=== PATIENT | female | born 1945 | race African-American/Black ===

== ENCOUNTER 2021-08-16 07:47 | Day surgery (SDC) | payer OTHER ==
--- NOTE | 2021-08-14 14:18 | RAD REPORT ---
EXAM DESCRIPTION: RAD - Chest Pa And Lat (2 Views) - 08/14/2021 2:10 pm CLINICAL HISTORY: Pre op pending mass removal Chest pain. COMPARISON: No comparisons FINDINGS: The lungs are clear. The heart is normal in size. No displaced fractures. IMPRESSION: No acute or concerning finding suspected.
[2021-08-14 14:57] LABS: Absolute Lymphocytes (CBC) 2.2 K/uL (0.7-4.9); Hematocrit 37.4 % (36.0-45.0); Lymphocytes % 31.7 % (15.3-44.8); MPV 7.6 fL (7.6-11.3); RBC Red Blood Cell Count 4.53 M/uL (3.86-4.86)
[2021-08-14 15:11] LABS: BUN Blood Urea Nitrogen 11 mg/dL (7-18); Bicarbonate 32 mmol/L (21-32); Glucose Level 82 mg/dL (74-106); Potassium 3.6 mmol/L (3.5-5.1); Sodium Level 138 mmol/L (136-145)
--- NOTE | 2021-08-15 18:16 | EKG ---
Test Date: 2021-08-14 Test Time: 12:43:32 Recycling Technician: CECILIA MEASUREMENT RESULTS: Intervals: Rate: 72 MD: 202 QRSD: 90 QT: 412 QTc: 451 Maramec: P: 43 MD: 202 QRS: -9 T: 73 INTERPRETIVE STATEMENTS: Normal sinus rhythm Nonspecific ST abnormality Abnormal ECG No previous ECG available for comparison Electronically Signed On 08-15-21 18:15:21 CDT by Fransico Montes
[2021-08-16] MEDS ORDERED: Ringers Lactate 1,000 ML IV ONE (08:09)
[2021-08-16] MEDS ORDERED: CEFAZOLIN SODIUM 1 GM/VIAL ONE (08:09)
[2021-08-16] MEDS ORDERED: LIDOCAINE 2% MPF 5 ML VIAL ONE (08:17)
[2021-08-16] MEDS ORDERED: propofoL 200 MG/20 ML VIAL IV ONE (08:17)
[2021-08-16] MEDS ORDERED: FENTANYL CITR 100 MCG/2 ML ONE (08:20)
[2021-08-16] MEDS ORDERED: ONDANSETRON 4 MG/2 ML VIAL ONE (08:20)
[2021-08-16] MEDS ORDERED: CELECOXIB 100 MG CAPSULE ONE (08:35)
[2021-08-16] MEDS ORDERED: ACETAMINOPHEN 500 MG TAB ONE (08:35)
[2021-08-16] MEDS ORDERED: EPHEDRINE SULF 50 MG/ML VIAL ONE (09:34)
[2021-08-16] MEDS ORDERED: HYDROCODONE/APAP 7.5/325 MG TAB PO PRN (10:16)
--- NOTE | 2021-08-16 10:16 | P.OP ---
Date of Service: 08/16/21 Preop diagnosis: Left axillary mass, back mass [id number] Postop diagnosis: Same, sebaceous cyst Procedure performed: Wide excision of left axillary mass 5 x 3 cm with layered closure, wide excision left upper back mass 4 x 2 cm with layered closure, wide excision middle back mass 4 x 2 cm with layered closure Surgeon: Nakul De Leon MD [facility] Experience Strategy: Blayne PATTON Estimated blood loss: Minimal Specimen: Left axillary mass and back mass x2 Findings: As above, sebaceous cysts Anesthesia: General Complications: None Drains: None Fluids and blood products: Nonapplicable Disposition: Recovery room Operative note: Patient brought to the OR and placed in the supine position. General anesthesia begun. Patient placed in the right lateral position. Patient prepped and draped in the usual sterile fashion. Marcaine 0.5% infiltrated locally for postop pain control. 15 blade used to make a 5 x 3 cm incision in the left axilla surrounding this large sebaceous cyst. Subcutaneous tissue divided and the entire cyst removed and sent to pathology as specimen. Wound irrigated bleeding controlled cautery. Flaps created. 3-0 chromic used to reapproximate subcutaneous tissue. 4-0 nylon used to close skin. Then 4 x 2 cm incision made surrounding both masses on the left upper back and middle back. In a similar f ashion, both masses excised and sent to pathology. Wounds irrigated bleeding controlled cautery. 2-0 chromic used to reapproximate subcutaneous tissue and 3-0 nylon used to close skin. Sterile dressing applied and patient awakened and taken and taken to recovery room in good general condition. CC: Dr. Alegre's office
[2021-08-16 12:59] VITALS: BP 140/55; TEMP 96.7; O2SAT 99
== END 2021-08-16 12:07 | disposition home or self-care (01) ==
LOC: OR 07:47
PROVIDERS: ATTEND Surgery
PROC: 0JBF0ZZ Excision of Left Upper Arm Subcutaneous Tissue and Fascia, Open Approach (ICD-10-PCS; 2021-08-16)
PROC: 0JB70ZZ Excision of Back Subcutaneous Tissue and Fascia, Open Approach (ICD-10-PCS; principal; 2021-08-16 09:00)
DX: L72.0 Epidermal cyst (principal); R22.32 Localized swelling, mass and lump, left upper limb; R22.2 Localized swelling, mass and lump, trunk; Z20.822 Contact with and (suspected) exposure to COVID-19
CPT/HCPCS: 93005; 85025; 80048; 36415; 88304; 71046; 11406; 11404 ×2; U0003; J2704; J3010; J7120; J2405; J0690; 88305